=== PATIENT | male | born 1960 | race Caucasian/White ===

== ENCOUNTER 2024-08-13 17:26 | Inpatient (IN) | payer MEDICARE, OTHER ==
[~2024-08-13] VITALS: Ht 188 cm; Wt 100.2 kg
[2024-08-13 17:41] LABS: BASOPHILS # (AUTO) 0.1 K/UL (0.0-0.2); BASOPHILS % (AUTO) 0.9 % (0.0-2.0); EOSINOPHILS # (AUTO) 0.1 K/uL (0.0-0.7); EOSINOPHILS % (AUTO) 1.2 % (0.0-7.0); HEMATOCRIT 45.2 % (36.7-47.1); HEMOGLOBIN 14.8 g/dL (12.5-16.3); LYMPHOCYTES # (AUTO) 1.7 K/uL (0.8-4.8); LYMPHOCYTES % (AUTO) 20.2 % (20.5-51.5); MEAN CORPUSCULAR HEMOGLOBIN 28.3 uug (23.8-33.4); MEAN CORPUSCULAR HGB CONC 33 g/dL (32.5-36.3); MEAN CORPUSCULAR VOLUME 86.3 fL (73.0-96.2); MONOCYTES # (AUTO) 0.7 K/uL (0.1-1.30); MONOCYTES % (AUTO) 8.1 % (0.0-11.0); NEUTROPHILS % (AUTO) 69.6 % (38.5-71.5); PLATELET COUNT (AUTO) 283 K/uL (152-348); RED BLOOD CELL COUNT(AUTO) 5.23 MIL/uL (4.06-5.63); RED CELL DISTRIBUTION WIDTH 16.4 % (12.1-16.2); WHITE BLOOD COUNT (AUTO) 8.6 K/uL (3.6-10.2)
[2024-08-13 17:45] LABS: DIFFERENTIAL COMMENT 1
[2024-08-13 18:00] LABS: ETHANOL < 3 MG/DL (0-10)
[2024-08-13] MEDS ORDERED: CHOL10005 PO (18:02)
[2024-08-13] MEDS ORDERED: DIPH25CA83 PO (18:02)
[2024-08-13] MEDS ORDERED: DIVA125T2 PO (18:02)
[2024-08-13] MEDS ORDERED: CLON0.1T PO (18:02)
[2024-08-13] MEDS ORDERED: MELA5TAB20 PO (18:02)
[2024-08-13] MEDS ORDERED: SERT-440 PO (18:02)
[2024-08-13] MEDS ORDERED: ACET1TAB23 PO (18:02)
[2024-08-13] MEDS ORDERED: CHOL100062 PO (18:02)
[2024-08-13] MEDS ORDERED: ACET-3117 PO (18:02)
[2024-08-13] MEDS ORDERED: ALPR1TAB7 PO (18:02)
[2024-08-13] MEDS ORDERED: GUAI-1197 PO (18:02)
[2024-08-13 18:09] LABS: *BILIRUBIN,URIN NEGATIVE (NEGATIVE); *BLOOD, URINE NEGATIVE (NEGATIVE); *CLARITY,URINE CLEAR (CLEAR); *COLOR,URINE YELLOW (YELLOW); *KETONES,URINE NEGATIVE (NEGATIVE); *PROTEIN,URINE NEGATIVE (NEGATIVE); *UROBILINOGEN,URINE 0.2 E.U./dl (NORMAL); LEUKOCYTE ESTERASE ,URINE NEGATIVE (NEGATIVE); NITRITE, URINE NEGATIVE (NEGATIVE); PH,URINE 7.5 (5.0-8.0); UGLUCOSE NEGATIVE (NEGATIVE)
[2024-08-13 18:20] LABS: ALANINE AMINOTRANSFERASE 25 U/L (16-63); ALBUMIN 4.2 g/dL (3.4-5.0); ALKALINE PHOSPHATASE 76 U/L (50-136); ASPARTATE AMINOTRANSFERASE 16 U/L (15-37); BILIRUBIN,DIRECT 0.1 mg/dL (0.0-0.2); BILIRUBIN,TOTAL 0.5 mg/dL (0.2-1.0); CALCIUM 9.7 mg/dL (8.5-10.1); CARBON DIOXIDE 28 mmol/L (21-32); CHLORIDE 104 mmol/L (98-107); GLUCOSE 103 mg/dL (74-106); POTASSIUM 4.4 mmol/L (3.5-5.1); SODIUM SERUM 143 mmol/L (136-145); TOTAL PROTEIN, SERUM 7.3 g/dL (6.4-8.2); UREA NITROGEN, BLOOD 13 mg/dL (7-18)
[2024-08-13 18:23] LABS: *AMPHETAMINE, URINE NEGATIVE (NEGATIVE); *BARBITURATE, URINE NEGATIVE (NEGATIVE); *BENZODIAZEPINE, URINE POSITIVE (NEGATIVE); *CANNABINOID, URINE NEGATIVE (NEGATIVE); *COCCAINE, URINE NEGATIVE (NEGATIVE); *OPIATE, URINE POSITIVE (NEGATIVE); *PHENCYCLIDINE SCREEN,URINE NEGATIVE (NEGATIVE); FENTANYL, URINE NEGATIVE (NEGATIVE)
[2024-08-13] MEDS ORDERED: CLONIDINE HCL 0.1 MG TABLET ONE (19:16)
[2024-08-13] MEDS ORDERED: DIVALPROEX 125 MG TABLET.DR PO ONE (19:16)
[2024-08-13] MEDS ORDERED: ALPRAZOLAM 0.5 MG TABLET ONE (19:17)
[2024-08-13] MEDS: CLONIDINE HCL 0.1 MG TABLET PO ONE (19:21)
[2024-08-13] MEDS: ALPRAZOLAM 0.25 MG TABLET PO ONE (19:21)
[2024-08-13] MEDS: DIVALPROEX 125 MG TABLET.DR PO ONE (19:21)
[2024-08-13] MEDS ORDERED: ACETAMINOPHEN/CODEINE 120-12 MG PER 5 ML LIQUID UDC ONE (19:28)
[2024-08-13] MEDS: ACETAMINOPHEN/CODEINE 120-12 MG PER 5 ML LIQUID UDC PO ONE (19:35)
[2024-08-13] MEDS ORDERED: ALPRAZOLAM 0.5 MG TABLET PO PRN (21:45)
[2024-08-14] MEDS ORDERED: LORAZEPAM 1 MG TABLET PO PRN (00:45)
[2024-08-14] MEDS ORDERED: MAG HYDROX/AL HYDROX/SIMETH 30 ML LIQUID UDC PO PRN (00:45)
[2024-08-14] MEDS ORDERED: ZOLPIDEM 5 MG TABLET PO PRN (00:45)
[2024-08-14] MEDS ORDERED: MAGNESIUM HYDROXIDE 30 ML LIQUID UDC PO PRN (00:45)
[2024-08-14] MEDS: ACETAMINOPHEN/CODEINE 300-30 MG TABLET PO PRN (00:55)
[2024-08-14 01:13] VITALS: BP 110/68; TEMP 98; O2SAT 98
[2024-08-14] MEDS: BLOOD SUGAR DIAGNOSTIC 1 EACH STRIP VI ONE (01:19)
[2024-08-14] MEDS ORDERED: ALPRAZOLAM 0.5 MG TABLET PO PRN (06:00)
[2024-08-14 08:14] VITALS: BP 114/71; TEMP 98.1; O2SAT 97
[2024-08-14] MEDS: LORAZEPAM 1 MG TABLET PO PRN (12:06)
[2024-08-14] MEDS: SERTRALINE HCL 50 MG TABLET PO SCH (12:30)
[2024-08-14] MEDS: DIVALPROEX 125 MG TABLET.DR PO SCH (12:35)
[2024-08-14 16:44] VITALS: BP 133/81; TEMP 98.5; O2SAT 99
[2024-08-14] MEDS: ALPRAZOLAM 0.5 MG TABLET PO SCH (17:38)
[2024-08-14 20:06] VITALS: BP 120/72; TEMP 98.2; O2SAT 98
[2024-08-14] MEDS: HYDROXYZINE PAMOATE 25 MG CAPSULE PO PRN (20:23)
[2024-08-14] MEDS: ACETAMINOPHEN 325 MG TABLET PO PRN (22:53)
[2024-08-15] MEDS: ZOLPIDEM 5 MG TABLET PO PRN (00:04)
[2024-08-15 08:14] VITALS: BP 104/75; TEMP 98; O2SAT 96
[2024-08-15 15:16] VITALS: BP 106/60; TEMP 98; O2SAT 96
[2024-08-15 19:56] VITALS: BP 122/75; TEMP 98.2; O2SAT 96
[2024-08-15] MEDS: ATORVASTATIN 20 MG TABLET PO SCH (20:40)
[2024-08-16 07:46] VITALS: BP 118/78; TEMP 98.2; O2SAT 98
[2024-08-16 08:49] LABS: THYROID STIMULATING HORMONE 1.061 mIU/mL (0.358-3.740)
[2024-08-16 15:46] VITALS: BP 129/78; TEMP 98; O2SAT 99
[2024-08-16 20:00] VITALS: BP 120/93; TEMP 97.6; O2SAT 100
[2024-08-17 07:52] VITALS: BP 122/74; TEMP 97.8; O2SAT 98
[2024-08-17 16:00] VITALS: BP 133/73; TEMP 98; O2SAT 96
[2024-08-17] MEDS: CLOTRIMAZOLE 1% CREAM 30 GM TUBE TOP SCH (17:00)
[2024-08-17 19:52] VITALS: BP 130/82; TEMP 97.9; O2SAT 97
[2024-08-18 07:53] VITALS: BP 125/83; TEMP 98.2; O2SAT 96
[2024-08-18 15:39] VITALS: BP 124/92; TEMP 98; O2SAT 99
[2024-08-18 21:05] VITALS: BP 103/65; TEMP 98.1; O2SAT 97
[2024-08-19 08:14] VITALS: BP 127/74; TEMP 98.5; O2SAT 98
[2024-08-19 16:08] VITALS: BP 141/86; TEMP 98.1; O2SAT 98
[2024-08-19 21:25] VITALS: BP 127/76; TEMP 98; O2SAT 98
[2024-08-20 08:13] VITALS: BP 140/87; TEMP 98; O2SAT 100
[2024-08-20] MEDS: DIVALPROEX 250 MG TABLET.DR PO SCH (08:46)
[2024-08-20 16:14] VITALS: BP 146/76; TEMP 98.8; O2SAT 100
[2024-08-20 19:49] VITALS: BP 123/84; TEMP 97.7; O2SAT 98
[2024-08-21 08:08] VITALS: BP 109/70; TEMP 98.3; O2SAT 100
[2024-08-21 16:15] VITALS: BP 135/79; TEMP 98.1; O2SAT 98
[2024-08-21 19:39] VITALS: BP 122/92; TEMP 97.9; O2SAT 93
[2024-08-22 07:57] VITALS: BP 115/81; TEMP 98.2; O2SAT 99
[2024-08-22 16:00] VITALS: BP 121/78; TEMP 98.2; O2SAT 98
[2024-08-22 20:00] VITALS: BP 121/74; TEMP 98.1; O2SAT 97
[2024-08-23 08:06] VITALS: BP 119/80; TEMP 98; O2SAT 98
[2024-08-23 12:35] VITALS: TEMP 98
== END 2024-08-23 17:35 | DRG 885 ==
LOC: ER 17:54 → GPS 18:00 → TELE IN 19:37 → UNDOADMIN 19:37 → GPS 08-22 19:21
PROVIDERS: ADMIT Psychiatry & Neurology Psychiatry; ATTEND Internal Medicine
DX: F39 Unspecified mood [affective] disorder (principal); G10 Huntington's disease; D68.59 Other primary thrombophilia; D84.9 Immunodeficiency, unspecified; F03.911 Unspecified dementia, unspecified severity, with agitation; N13.8 Other obstructive and reflux uropathy; G35 Multiple sclerosis; E66.9 Obesity, unspecified; Z68.28 Body mass index [BMI] 28.0-28.9, adult; Z87.820 Personal history of traumatic brain injury; Z91.199 Patient's noncompliance with other medical treatment and regimen due to unspecified reason; Z79.899 Other long term (current) drug therapy; Z74.09 Other reduced mobility; E78.5 Hyperlipidemia, unspecified; F31.9 Bipolar disorder, unspecified; N40.1 Benign prostatic hyperplasia with lower urinary tract symptoms; I10 Essential (primary) hypertension
CPT/HCPCS: 36415; 70450; 80164; 83921; 84443; 85025; G0480; J3490